=== PATIENT | female | born 1985 | race Caucasian/White ===

== ENCOUNTER 2017-08-10 11:15 | Day surgery (SDC) | payer MEDICAID ==
--- NOTE | 2017-08-10 12:28 | PDGENHP ---
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 no IBD. no colon cancer Relevant Physical Exam: A+Ox3. CTA. S1S2, RRR. +BS soft nt Cardiorespiratory Assessment: class 2
--- NOTE | 2017-08-10 13:15 | GIREPORT ---
Formerly [facility], 1928–1983 Surgical Services - Endoscopy Department Patient Name: Mary Davison Procedure Date: 08/10/2017 12:57 PM Patient Type: Outpatient Attending MD/ ER Physician: Letty Cueto Procedure: Flexible Sigmoidoscopy Indications: Disease activity assessment of chronic ulcerative proctitis, Assess therapeutic response to therapy of chronic ulcerative proctitis Providers: Hilton Ly MD Referring MD: Emma aBrroso, Physician Credit Portfolio Advisor Medicines: None Complications: No immediate complications. Estimated blood loss: Minimal. Description of Procedure: After obtaining informed consent, the endoscope was passed under direct vision. Throughout the procedure, the patient's blood pressure, pulse, and oxygen saturations were monitored continuously. The Colonoscope was introduced through the anus and advanced to the descending colon. The flexible sigmoidoscopy was accomplished without difficulty. The patient tolerated the procedure well. The quality of the bowel preparation was good. Findings: The digital rectal exam was normal. A scattered area of minimally altered vascular and erythematous mucosa was found in the proximal rectum, in the sigmoid colon and in the descendin g colon. Biopsies were taken with a cold forceps for histology. Estimated blood loss was minimal. A localized area of mildly erythematous, eroded and ymxaswvy-xjlocbe-hlppxbojq mucosa was found in the distal rectum. Biops ies were taken with a cold forceps for histology. Estimated blood loss was minimal. The exam was otherwise without abnormality. Estimated Blood Loss: Estimated blood loss was minimal. Post Op Diagnosis: - Altered vascular and erythematous mucosa in the proximal rectum, in t he sigmoid colon and in the descending colon. Biopsied. - Erythematous, minimally eroded and jjungmhb-bapojph-kcharamih mucosa in the distal rectum. Biopsied. - The mucosa looks more normal the more proximal one looks. - The examination was otherwise normal. Recommendation: - Await pathology results. - My office will call with the pathology result with 5-7 days. If you h ave not heard from my office by 12-14, do not assume the pathology is los l, please call [phone] to get the pathology results. - Continue present medications. On oral Lialda/mesalamine. - PRN use of Rowasa/mesalamine enema or Canasa suppository. - Discharge patient to home (ambulatory). - Return to primary care physician as previously scheduled. - Return to GI clinic in 2 months. - Thank you for allowing me to help in your patient's care. Do not hesi lazo to call with any questions. Attending Participation: I personally performed the entire procedure. Aliyah Canela M.D Hilton Ly MD 08/10/2017 1:15:05 PM This report has been signed electronicallyMathew MD Aliyah Number of Addenda: 0 Note Initiated On: 08/10/2017 12:57 PM [email or web address]
[2017-08-10 13:38] VITALS: BP 115/80
== END 2017-08-10 13:32 | disposition home or self-care (01) ==
LOC: FSGY 11:15
PROVIDERS: ATTEND Internal Medicine Gastroenterology
PROC: 0DBM8ZX Excision of Descending Colon, Via Natural or Artificial Opening Endoscopic, Diagnostic (ICD-10-PCS; principal; 2017-08-10 12:00)
PROC: 0DBP8ZX Excision of Rectum, Via Natural or Artificial Opening Endoscopic, Diagnostic (ICD-10-PCS; principal; 2017-08-10 12:00)
PROC: 0DBN8ZX Excision of Sigmoid Colon, Via Natural or Artificial Opening Endoscopic, Diagnostic (ICD-10-PCS; principal; 2017-08-10 12:00)
DX: K52.9 Noninfective gastroenteritis and colitis, unspecified (principal)